=== PATIENT | female | born 1950 | race Caucasian/White ===

== ENCOUNTER 2024-09-12 15:42 | Emergency (ER) | payer SELFPAY ==
[~2024-09-12] VITALS: Ht 149.9 cm; Wt 50.9 kg
[2024-09-12] MEDS ORDERED: IOPAMIDOL 370 MG/ML 100 ML INFUS..BTL INJ ONE (16:54)
[2024-09-12 17:52] VITALS: RESP 16
[2024-09-12 21:04] VITALS: PULSE 71; TEMP 98.6
[2024-09-12 21:10] VITALS: BP 157/74; PULSE 71; RESP 18; TEMP 98.6; O2SAT 96
== END 2024-09-12 21:19 | disposition home or self-care (01) ==
LOC: FSED 15:49
DX: S20.214A Contusion of middle front wall of thorax, initial encounter (principal); V43.52XA Car driver injured in collision with other type car in traffic accident, initial encounter; Y92.488 Other paved roadways as the place of occurrence of the external cause
CPT/HCPCS: 71260; 80048; 85025; 99283; Q9967